=== PATIENT | male | born 1985 | race African-American/Black ===

== ENCOUNTER 2022-06-15 20:55 | Emergency (ER) | payer BC ==
[2022-06-15] MEDS ORDERED: Fluorescein Opthalmic Strip ONE (21:34)
[2022-06-15] MEDS ORDERED: Proparacaine 0.5% Opth 15 ML BOT ONE (21:36)
== END 2022-06-15 21:59 | disposition home or self-care (01) ==
LOC: ERS 20:55
DX: S05.01XA Injury of conjunctiva and corneal abrasion without foreign body, right eye, initial encounter (principal); X58.XXXA Exposure to other specified factors, initial encounter
CPT/HCPCS: 99283